=== PATIENT | female | born 1965 | race Hispanic/Latino ===

== ENCOUNTER 2018-09-06 12:06 | Emergency (ER) | payer SELFPAY ==
[2018-09-06 12:12] VITALS: BP 127/99
[2018-09-06] MEDS ORDERED: BOOSTRIX IM ONE (12:27)
[2018-09-06] MEDS ORDERED: IBUPROFEN PO ONE (12:27)
--- NOTE | 2018-09-06 12:37 | Emergency Department Report ---
ED Fall HPI - General Chief Complaint: Fall Stated Complaint: KNEE INJURY/ELBOW PAIN Time Seen by Provider: 09/06/18 12:24 Source: patient Mode of arrival: Ambulatory - History of Present Illness Initial Comments: This is a 53-year-old female nontoxic, well nourished in appearance, no acute signs of distress presents to the ED with c/o of bilateral knee pain, right elbow pain, and left wrist abrasion. Patient stated that she cut herself while falling against the door but denies any trauma or fall to the wrist or hand. Patient stated that she had a ground level trip and fall 3 days ago. Patient denies any back or neck or head injuries or pain. Patient denies any other trauma. Patient denies any numbness, tingling, fever, chills, nausea, vomiting, chest pain, shortness of breath, headache, stiff neck. Patient denies any joint swelling or joint redness. Patient denies decreased range of motion. Patient stated has decreased gait due to pain. Patient denies any allergies or significant past medical history. MD Complaint: fall -: days(s) (3) Fall Witnessed: yes, by bystander Place Fall Occurred: other (store) Loss of Consciousness: none Prolonged Down Time?: no Symptoms Prior to Fall: none Location - Extremities: Left: Knee, Right: Elbow, Knee Severity: mild Severity scale (0 -10): 8 Quality: aching Context: tripped/slipped Associated Symptoms: denies. denies: headache, neck pain, numbness, weakness, chest paint, shortness of breath, abdominal pain, hematuria, unable to walk, lightheaded, vertigo, confusion - Related Data Previous Rx's Medication Instructions Recorded Last Taken Type Cyclobenzaprine [Flexeril] 10 mg PO QHS PRN #10 tablet 09/06/18 Unknown Rx Ibuprofen [Motrin] 600 mg PO Q8H PRN #20 tablet 09/06/18 Unknown Rx Allergies Allergy/AdvReac Type Severity Reaction Status Date / Time No Known Allergies Allergy Unverified 09/06/18 12:12 ED Review of Systems ROS: Stated complaint: KNEE INJURY/ELBOW PAIN Other details as noted in HPI Constitutional: denies: chills, fever Eyes: denies: eye pain, eye discharge, vision change ENT: denies: ear pain, throat pain Respiratory: denies: cough, shortness of breath, wheezing Cardiovascular: denies: chest pain, palpitations Endocrine: no symptoms reported Gastrointestinal: denies: abdominal pain, nausea, diarrhea Genitourinary: denies: urgency, dysuria, discharge Musculoskeletal: arthralgia. denies: back pain, joint swelling Skin: denies: rash, lesions Neurological: denies: headache, weakness, paresthesias Psychiatric: denies: anxiety, depression Hematological/Lymphatic: denies: easy bleeding, easy bruising ED Past Medical Hx - Past Medical History Previous Medical History?: No Additional medical history: staph infection - Surgical History Additional Surgical History: tonsillectomy,hysterectomy(partial) - Social History Smoking Status: Former Smoker Substance Use Type: None - Medications Home Medications: Home Medications Medication Instructions Recorded Confirmed Last Taken Type Cyclobenzaprine [Flexeril] 10 mg PO QHS PRN #10 tablet 09/06/18 Unknown Rx Ibuprofen [Motrin] 600 mg PO Q8H PRN #20 tablet 09/06/18 Unknown Rx ED Physical Exam - General Limitations: No Limitations General appearance: alert, in no apparent distress - Head Head exam: Present: atraumatic, normocephalic - Eye Eye exam: Present: normal appearance - Neck Neck exam: Present: normal inspection, full ROM. Absent: tenderness, meningismus, lymphadenopathy - Extremities Exam Extremities exam: Present: normal inspection, full ROM, tenderness, normal capillary refill. Absent: joint swelling - Expanded Upper Extremity Exam Right General: Present: normal inspection (bilateral exam) Shoulder Exam: Present: normal inspection (bilateral exam), full ROM (bilateral exam). Absent: tenderness Upper Arm exam: Present: normal inspection, full ROM (bilateral exam). Absent: tenderness Elbow exam: Present: normal inspection (bilateral exam), full ROM (bilateral exam), tenderness (right elbow), abrasion (right elbow). Absent: swelling, laceration, ecchymosis, deformity, crepidus, dislocation, erythema, effusion, tenderness over radial head Forearm Wrist exam: Present: normal inspection (bilateral exam), full ROM (bilateral exam), abrasion (left wrist). Absent: tenderness, swelling, laceration, ecchymosis, deformity, crepidus, dislocation, erythema, tenderness over anatomical snuff box, pain with axial thumb loading Hand Wrist exam: Present: normal inspection (bilateral exam), full ROM (bilateral exam). Absent: tenderness Vascular: Present: vascular compromise (bilateral exam), normal capillary refill (bilateral exam) - Expanded Lower Extremity Exam Left Hip exam: Present: normal inspection (bilateral exam), full ROM. Absent: tenderness, swelling Upper Leg exam: Present: normal inspection (bilateral exam), full ROM (bilateral exam). Absent: tenderness, swelling Knee exam: Present: normal inspection (bilateral exam), full ROM (bilateral exam), tenderness (bilateral exam), full knee extension (bilateral exam). Absent: swelling, abrasion, laceration, ecchymosis, deformity, crepidus, dislocation, erythema, effusion, pain w/ pronation/supination, posterior draw sign, pain/laxity with valgus, pain/laxity with varus Lower Leg exam: Present: normal inspection (bilateral exam), full ROM (bilateral exam). Absent: tenderness Ankle exam: Present: normal inspection (bilateral exam), full ROM (bilateral exam). Absent: tenderness Foot/Toe exam: Present: normal inspection (bilateral exam), full ROM (bilateral exam). Absent: tenderness Neuro vascular tendon exam: Present: no vascular compromise (bilateral exam) Gait: Positive: observed and normal (bilateral exam) - Back Exam Back exam: Present: normal inspection, full ROM. Absent: tenderness, CVA tenderness (R), CVA tenderness (L), muscle spasm, paraspinal tenderness, vert ebral tenderness, rash noted - Neurological Exam Neurological exam: Present: alert, oriented X3, normal gait - Psychiatric Psychiatric exam: Present: normal affect, normal mood - Skin Skin exam: Present: warm, dry, intact, normal color. Absent: rash ED Course Vital Signs 09/06/18 12:09 Temperature 97.6 F Pulse Rate 94 H Respiratory 18 Rate Blood Pressure 127/99 O2 Sat by Pulse 98 Oximetry - Reevaluation(s) Reevaluation #1: 09/06/18 12:41 Patient is speaking in full sentences with no signs of distress noted. ED Medical Decision Making - Medical Decision Making This is a 53-year-old female that presents with bilateral knee and elbow strain and lef twrist abraision. Patient is stable and was examined by me. I referred patient to an orthopedic doctor for further evaluation for possible MRI. X-ray has been obtained and dictated by the radiologist. Patient is notified of the x-ray report with noted by the patient. Patient does have normal gait with no tenderness and no joint swelling. No ecchymosis. no joint redness or swelling. Not warm to touch. No signs of cellulites present. Patient received a tetanus in the ED.. Patient was instructed to RICE therapy. Patient received Motrin for pain. Patient is discharged with Motrin. Abrasion has been cleaned with soap and water. At time of discharge, the patient does not seem toxic or ill in appearance. No acute signs of distress noted. Patient agrees to discharge treatment plan of care. No further questions noted by the patient. Critical care attestation.: If time is entered above; I have spent that time in minutes in the direct care of this critically ill patient, excluding procedure time. ED Disposition Clinical Impression: Strain of knee, bilateral Fall Qualifiers: Encounter type: initial encounter Qualified Code(s): W19.XXXA - Unspecified fall, initial encounter Strain of right elbow Qualifiers: Encounter type: initial encounter Qualified Code(s): S46.911A - Strain of unspecified muscle, fascia and tendon at shoulder and upper arm level, right arm, initial encounter Abrasion of left wrist Qualifiers: Encounter type: initial encounter Qualified Code(s): S60.812A - Abrasion of left wrist, initial encounter Disposition: TO HOME OR SELFCARE Is pt being admited?: No Does the pt Need Aspirin: No Condition: Stable Instructions: Fall Prevention (ED), RICE Therapy (ED), Cyclobenzaprine (By mouth) Additional Instructions: Follow-up with a primary care/primary care doctor doctor in 3-5 days or if symptoms worsen and continue return to emergency room as soon as possible. Take ibuprofen and Flexeril as prescribed. Do not operate heavy machinery while taking Flexeril due to sedation Prescriptions: Cyclobenzaprine [Flexeril] 10 mg PO QHS PRN #10 tablet PRN Reason: Muscle Spasm Ibuprofen [Motrin] 600 mg PO Q8H PRN #20 tablet PRN Reason: Pain Referrals: PRIMARY CARE, [Referring] - 3-5 Days NEW CATALAN MD [Staff Physician] - 3-5 Days [facility] [Outside] - 3-5 Days GLENN LOZANO MD [Staff Physician] - 3-5 Days Forms: Work/School Release Form(ED)
--- NOTE | 2018-09-06 13:41 | XRay Report ---
FINAL REPORT EXAM: XR ELBOW 3+V RT HISTORY: fall TECHNIQUE: AP, oblique and lateral radiographs of the right elbow. PRIORS: None. FINDINGS: No fracture. No dislocation. Normal mineralization. No soft tissue abnormality. No joint effusion. Mild degenerative changes of the right elbow are seen. IMPRESSION: No acute right elbow abnormality.
--- NOTE | 2018-09-06 13:44 | XRay Report ---
FINAL REPORT EXAM: XR KNEE BILAT 3V HISTORY: fall TECHNIQUE: Four views of the right and left knees. PRIORS: None. FINDINGS: No fracture. No dislocation. There is diffuse osteopenia of both knees. Tricompartment osteophyte formations are seen involving pillo th knees, left worse than right. There is joint space narrowing of the medial compartment of both kne es. No soft tissue abnormality. There is a right knee joint effusion. No left knee joint effusion. IMPRESSION: 1. No acute osseous abnormality of the knees. Right knee joint effusion. 2. Osteoarthritis of the knees, left worse than right.
== END 2018-09-06 14:26 | disposition home or self-care (01) ==
LOC: ED 12:06
DX: S46.911A Strain of unspecified muscle, fascia and tendon at shoulder and upper arm level, right arm, initial encounter (principal); S86.912A Strain of unspecified muscle(s) and tendon(s) at lower leg level, left leg, initial encounter; S86.911A Strain of unspecified muscle(s) and tendon(s) at lower leg level, right leg, initial encounter; S60.812A Abrasion of left wrist, initial encounter; Z90.89 Acquired absence of other organs; Z90.711 Acquired absence of uterus with remaining cervical stump; Z87.891 Personal history of nicotine dependence; W01.190A Fall on same level from slipping, tripping and stumbling with subsequent striking against furniture, initial encounter; Y93.89 Activity, other specified; Y92.89 Other specified places as the place of occurrence of the external cause; Y99.8 Other external cause status
CPT/HCPCS: 90471; 90715; 99283

== ENCOUNTER 2021-12-04 10:16 | Outpatient (CLI) | payer OTHER ==
--- NOTE | 2021-12-04 13:15 | XRay Report ---
Lumbar spine 4 views INDICATION: Back pain FINDINGS: Facet degenerative changes seen throughout. Endplate changes with small anterior posterior disc osteophytes throughout the spine. No subluxation. IMPRESSION: Degenerative changes seen throughout spine Signer Name: Nathanael Conway MD Signed: 12/04/2021 1:11 PM Workstation Name: [employer] [id number]
--- NOTE | 2021-12-04 13:43 | XRay Report ---
BILATERAL KNEE 2 VIEW(S) INDICATION / CLINICAL INFORMATION: SEVERE ARTHRITIS COMPARISON: None available. FINDINGS: BONES / JOINT(S): No acute fracture or subluxation. Severe osteoarthrosis bilaterally, most significa ntly involving the medial femorotibial compartments. SOFT TISSUES: No significant abnormality. ADDITIONAL FINDINGS: None. Signer Name: Valerio Walker MD Signed: 12/04/2021 1:39 PM Workstation Name: [id number]
--- NOTE | 2021-12-04 13:44 | XRay Report ---
. RIGHT FOREARM 5 VIEW(S) INDICATION / CLINICAL INFORMATION: SEVERE ARTHRITIS COMPARISON: None available. FINDINGS: BONES / JOINT(S): No acute fracture or subluxation. Moderate osteoarthrosis of the right elbow joint. SOFT TISSUES: No significant abnormality. ADDITIONAL FINDINGS: None. Signer Name: Valerio Walker MD Signed: 12/04/2021 1:39 PM Workstation Name: [employer] [facility]
== END 2021-12-04 10:17 | disposition home or self-care (01) ==
LOC: XRAY 10:16
PROVIDERS: ATTEND Internal Medicine
DX: M17.0 Bilateral primary osteoarthritis of knee (principal); M25.78 Osteophyte, vertebrae; M51.36 Other intervertebral disc degeneration, lumbar region; M19.021 Primary osteoarthritis, right elbow
CPT/HCPCS: 72100; 73565